=== PATIENT | female | born 1990 | race Two or more races ===

== ENCOUNTER 2017-01-14 05:40 | Inpatient (IN) | payer OTHER ==
[~2017-01-14] VITALS: Ht 167.6 cm; Wt 90.0 kg
[2017-01-14] VITALS (7 sets, daily range): BP systolic 108–122; BP diastolic 57–76
[2017-01-14] MEDS ORDERED: LR 500 ML IV ONE (06:00)
[2017-01-14] MEDS ORDERED: BICITRA 30ML SOLN UDC PO ONE (06:15)
[2017-01-14] MEDS ORDERED: LR 1,000 ML IV SCH ×2 (06:15→10:15)
[2017-01-14] MEDS ORDERED: PRENTAB9 PO (06:41)
[2017-01-14 07:06] LABS: MEAN CORPUSCULAR HEMOGLOBIN 32.5 pg (27.0-33.0); MEAN CORPUSCULAR HGB CONC 34.3 g/dl (32.0-36.5); MEAN CORPUSCULAR VOLUME 94.7 fl (80.0-96.0); RED CELL DISTRIBUTION WIDTH 13.9 % (11.5-14.5); WHITE BLOOD COUNT 12.1 K/mm3 (4.0-10.0)
[2017-01-14] MEDS ORDERED: NALOXONE INJ 0.4 MG/1 ML VIAL (J2310) IV PRN ×2 (08:22)
[2017-01-14] MEDS ORDERED: METOCLOPRAMIDE INJ 10MG/2ML VIAL (J2765) IV PRN ×2 (08:22→10:15)
[2017-01-14] MEDS ORDERED: ONDANSETRON 4MG/2ML VIAL (J2405) IV PRN ×2 (08:22→10:15)
[2017-01-14] MEDS ORDERED: NALBUPHINE HCL 10 MG/ML AMP (J2300) IV PRN ×2 (08:22→10:15)
[2017-01-14] MEDS ORDERED: OXYTOCIN INJ 10 UNITS/ML VIAL (J2590) As Ordered ONE ×2 (08:51→09:28)
[2017-01-14] MEDS ORDERED: MORPHINE PRES-FREE INJ 10 MG/10 ML VIAL (J2274) As Ordered ONE (08:51)
[2017-01-14] MEDS ORDERED: KETOROLAC 60 MG/2 ML VIAL (J1885) As Ordered ONE (08:51)
[2017-01-14] MEDS ORDERED: ePHEDrine SULFATE 25 MG/5 ML(5MG/ML) SYRINGE As Ordered ONE (08:51)
[2017-01-14] MEDS: DOCUSATE SODIUM 100 MG CAP PO SCH ×2 (09:00→20:24)
[2017-01-14] MEDS: PRENATAL VITAMINS CHEWABLE TABLET PO SCH (09:00)
[2017-01-14] MEDS ORDERED: ONDANSETRON 4MG/2ML VIAL (J2405) As Ordered ONE (09:29)
[2017-01-14] MEDS ORDERED: MEASLES,MUMPS,RUBELLA VACCINE INJ (MMR-II) (90707) SC SCH (09:45)
[2017-01-14] MEDS ORDERED: RHOGAM 300 MCG (1500 IU) INJ (J2790) IM SCH (09:45)
[2017-01-14] MEDS ORDERED: PERCOCET 5MG/325MG TAB PO PRN ×2 (09:45→10:15)
[2017-01-14] MEDS ORDERED: PROMETHAZINE 25 MG TAB PO PRN (09:45)
[2017-01-14] MEDS ORDERED: MOM 30ML SUSPENSION UDC PO PRN (09:45)
[2017-01-14] MEDS ORDERED: fentaNYL 100 MCG/2 ML INJECTION (J3010) IV PRN (10:15)
[2017-01-14] MEDS ORDERED: MEPERIDINE INJ 25 MG/ML VIAL (J2175) IV PRN (10:15)
[2017-01-14] MEDS ORDERED: OXYTOCIN 30 UNITS IN 0.9% NaCl 500ML IV BAG (J2590) As Ordered ONE (10:38)
[2017-01-14] MEDS ORDERED: OXYTOCIN DRIP 30 UNITS in APPROPRIATE DILUENT 1 EA IV SCH (11:00)
[2017-01-14] MEDS: KETOROLAC 30 MG/ML VIAL (J1885) IV SCH ×2 (15:08→20:24)
[2017-01-14] MEDS: ONDANSETRON 4MG/2ML VIAL (J2405) IV PRN (16:40)
[2017-01-14] MEDS: LR 1,000 ML IV SCH (19:39)
[2017-01-15 02:00] VITALS: BP 116/64
[2017-01-15] MEDS: KETOROLAC 30 MG/ML VIAL (J1885) IV SCH ×2 (02:26→08:20)
[2017-01-15] MEDS: LR 1,000 ML IV SCH (03:45)
[2017-01-15 05:53] VITALS: BP 122/57
[2017-01-15 06:54] LABS: MEAN CORPUSCULAR HEMOGLOBIN 32.6 pg (27.0-33.0); MEAN CORPUSCULAR HGB CONC 34.7 g/dl (32.0-36.5); MEAN CORPUSCULAR VOLUME 93.9 fl (80.0-96.0); RED CELL DISTRIBUTION WIDTH 13.8 % (11.5-14.5); WHITE BLOOD COUNT 8.2 K/mm3 (4.0-10.0)
[2017-01-15] MEDS: ONDANSETRON 4MG/2ML VIAL (J2405) IV PRN (08:19)
[2017-01-15] MEDS: PRENATAL VITAMINS CHEWABLE TABLET PO SCH (08:21)
[2017-01-15] MEDS: DOCUSATE SODIUM 100 MG CAP PO SCH ×2 (08:21→21:12)
[2017-01-15 10:00] VITALS: BP 131/61
[2017-01-15 14:00] VITALS: BP 132/64
[2017-01-15] MEDS: IBUPROFEN 800 MG TAB PO SCH (17:20)
[2017-01-15 18:04] VITALS: BP 117/57
[2017-01-15] MEDS: PERCOCET 5MG/325MG TAB PO PRN (18:25)
[2017-01-15 22:05] VITALS: BP 123/70
[2017-01-16] MEDS: IBUPROFEN 800 MG TAB PO SCH ×2 (00:29→08:24)
[2017-01-16] MEDS: PERCOCET 5MG/325MG TAB PO PRN ×3 (00:29→11:55)
[2017-01-16 05:35] VITALS: BP 115/71
--- NOTE | 2017-01-16 07:48 | RO ---
DATE OF PROCEDURE: 01/14/2017 PREOPERATIVE DIAGNOSES: 1. Previous low transverse section. 2. Term . POSTOPERATIVE DIAGNOSES: 1. Previous low transverse section. 2. Term . PROCEDURE: Repeat low transverse section. SURGEON: Real Cortez MD BOOSTER PUMP OPERATOR: Clifford Hendrix MD ANESTHESIA: Harlan Guerrier, INSURANCE LOSS CONTROL SURVEYOR, spinal. INTRAVENOUS (IV) FLUIDS: 1100 mL isotonic. ESTIMATED BLOOD LOSS (EBL): 400 mL. URINE OUTPUT: 75 mL. DESCRIPTION OF PROCEDURE: Patient is a 26-year-old, G2, P1-0-0-1, at 40 and 2 previously desired a trial of labor after section (TOLAC). However at 40 weeks, with concern for possibly needing to be induced for postterm, now elects for elective repeat low transverse (C) section. Denies vaginal bleeding/loss of fluids/positive movement. complicated only by a previous low transverse incision. Patient was extensively counseled on risks/benefits/alternatives/indications to a TOLAC versus a repeat section. Again, patient made decision for a repeat section. The risks, benefits, indications, alternatives of the procedure were reviewed with patient. Informed consent was obtained. Patient was taken to the operating room where spinal anesthesia was obtained without difficulty. She was then prepped and draped in normal sterile fashion in dorsal spine position with a left lateral tilt. After a time-out and a Chandra catheter was placed, a Pfannenstiel skin incision was made with the scalpel and carried through to the underlying layer of the fascia. The fascia was incised in midline, extended laterally with Arthur scissors. The superior aspect of the fascial incision was grasped with Dilma clamps times two and bluntly dissected off with the assistance of Bovie as well as sharp dissection. The attention was then turned to the inferior aspect of the incision which, in a similar fashion, was grasped, tented up with Dilma clamps, and the rectus muscle dissected off bluntly and aided by Arthur scissors. Rectus muscles were then in the midline. Peritoneum was identified, entered digitally. The peritoneal incision was then extended horizontally superiorly to get visualization of bladder. This was also aided with Virgie clamps times two until it could get down to the perineum and then entered sharply with Metzenbaum scissors. A bladder blade was then introduced into the abdomen. Vesicouterine peritoneum was identified and found to be well inferior to the pending hysterotomy site. However, it was also identified, grasped with pickups, and entered sharply with Metzenbaum scissors and extended laterally and a bladder flap created digitally. Next, a lower uterine incision was incised in a transverse fashion with scalpel and extended in a superior lateral direction. The amniotic sac was artificially ruptured and productive of clear fluid. The infant was found to be in the cephalic presentation and delivered through the hysterotomy without complications. The cord was doubly clamped and cut. The infant was handed off to the awaiting telephone clerk telegraph office. Cord blood gases were obtained without difficulty. At this time, the uterus, bilateral fallopian tubes and ovaries were all noted to be normal. The placenta was then removed with gentle traction on the umbilical cord manually. The uterus was then exteriorized and cleared of all clots and debris. The bladder blade was introduced again. The uterine incision was repaired with #0 Monocryl in a running locked fashion. A second layer of #0 Monocryl was used for imbrication. The bladder was backfilled with sterile milk, approximately 60 mL, which demonstrated that the bladder was inferior to the incision with no concerns from the hysterotomy or repair site. This was done due to questionable superior edge of the bladder. Again, the fallopian tubes, ovaries, and uterus were otherwise appearing normal. Posterior cul-de-sac was then irrigated with warm saline, and the uterus was reintroduced into the abdomen. Examination of the hysterotomy was noted for approximately 30 seconds with no further bleeding and was considered hemostatic. The gutters were then cleared of all clots and debris. The peritoneum was closed in a running fashion with #3-0 Vicryl. The fascia was then reapproximated with #0 Vicryl in a running fashion. The subcutaneous layer was closed in interrupted fashion times four #3-0 Vicryl. The skin was closed with #4-0 Monocryl in a subcuticular fashion, and a pressure dressing was applied and Steri-Strips. At the completion of the case, bimanual exam performed with good uterine tone and minimal vaginal bleeding. Patient tolerated procedure well. Sponge, lap, and needle counts correct times three. The patient was taken to recovery room in stable condition. SLIM
[2017-01-16] MEDS ORDERED: COLA100C5 PO (08:01)
[2017-01-16] MEDS ORDERED: IBUP-1114 PO (08:01)
[2017-01-16] MEDS: PRENATAL VITAMINS CHEWABLE TABLET PO SCH (08:23)
[2017-01-16] MEDS: DOCUSATE SODIUM 100 MG CAP PO SCH (08:23)
--- NOTE | 2017-01-17 03:23 | DSES ---
DATE OF ADMISSION: 01/14/2017 DATE OF DISCHARGE: 01/16/2017 ADMISSION DIAGNOSES: 1. Term . 2. Desire for repeat low transverse (C) section. DISCHARGE DIAGNOSIS: Status post uncomplicated repeat low transverse . DELIVERY/PROCEDURE: Repeat low transverse . COMPLICATIONS: None. Delivery of a healthy female, scores 9, 9, weight 3462. HOSPITAL COURSE: Uncomplicated postoperative course. Tolerated oral. Out of bed, ambulating without significant issues. Chandra discontinued, met due to void. Postoperative complete blood count (CBC) without major concerns. Independent in activities of daily living. Pain managed by PO pain medicine. DIET: As tolerated. ACTIVITY: Routine postoperative precautions in relation to activity. FOLLOWUP: Incision evaluation within 2 weeks or sooner as needed and routine visit 6 weeks or sooner as needed. Counseled on routine precautions and activities. MEDICATIONS: Previously ordered for patient at [place] to be picked up. Bj Cortez OB-PROGRAM SERVICES PLANNER SLIM
== END 2017-01-16 12:00 | disposition home or self-care (01) | DRG 766 ==
LOC: M LDI 05:40 → M OBS 11:16
PROVIDERS: ADMIT Student in an Organized Health Care Education/Training Program; ATTEND Student in an Organized Health Care Education/Training Program
PROC: 10D00Z1 Extraction of Products of Conception, Low, Open Approach (ICD-10-PCS; principal; 2017-01-14 07:30)
DX: O34.211 Maternal care for low transverse scar from previous cesarean delivery (principal); Z37.0 Single live birth; Z3A.40 40 weeks gestation of pregnancy; O48.0 Post-term pregnancy

== ENCOUNTER → 2017-01-29 | Outpatient (REF) | payer OTHER ==
[~2017-01-29] MED LIST: COLA100C5 PO; IBUP-1114 PO; PRENTAB9 PO
== END ==
LOC: M SFHCLERA 19:00
PROVIDERS: ATTEND Physician Assistant
DX: R30.0 Dysuria (principal)